=== PATIENT | male | born 1990 | race African-American/Black ===

== ENCOUNTER 2018-08-14 07:56 | Emergency (ER) | payer OTHER ==
[~2018-08-14] VITALS: Ht 180.3 cm; Wt 101.4 kg
[2018-08-14] MEDS ORDERED: ACET-683 PO (08:07)
[2018-08-14] MEDS ORDERED: IBUP200C25 PO (08:07)
[2018-08-14 08:57] LABS: BASO % 0.8 % (0.0-1.0); EOS # 0.1 10^3/uL (0.0-0.50); EOS % 2.5 % (0.0-3.0); HEMATOCRIT 44.9 % (42.0-52.0); LYMPH # 1.7 10^3/uL (1.5-6.5); LYMPH % 34.9 % (24.0-44.0); MEAN CORPUSCULAR HEMOGLOBIN 29.6 pg (27.0-33.0); MEAN CORPUSCULAR HGB CONC 33.4 g/dl (32.0-36.5); MEAN CORPUSCULAR VOLUME 88.7 fl (80.0-96.0); MONO # 0.4 10^3/uL (0.0-0.8); MONO % 7.9 % (0.0-5.0); NEUTROPHILS # 2.6 10^3/uL (1.8-7.7); NEUTROPHILS % 53.7 % (36.0-66.0); PLATELET COUNT, AUTOMATED 185 10^3/uL (150-450); RED BLOOD COUNT 5.06 10^6/uL (4.30-6.10); WHITE BLOOD COUNT 4.8 10^3/uL (4.0-10.0)
[2018-08-14 09:23] LABS: BLOOD UREA NITROGEN 6 MG/DL (7-18); CALCIUM LEVEL 8.7 MG/DL (8.5-10.1); CARBON DIOXIDE LEVEL 26 MEQ/L (21-32); CHLORIDE LEVEL 108 MEQ/L (98-107); CREATININE FOR GFR 1.28 MG/DL (0.70-1.30); GLOMERULAR FILTRATION RATE > 60.0 (>60); GLUCOSE, FASTING 95 MG/DL (70-100); POTASSIUM SERUM 4.3 MEQ/L (3.5-5.1); SODIUM LEVEL 142 MEQ/L (136-145)
--- NOTE | 2018-08-14 09:23 | REP ---
Chest two views HISTORY: Cough Comparison: None The lungs are clear. The heart is normal in size. The pulmonary vasculature is normal in appearance. The bony structure is intact. IMPRESSION: No acute disease. Electronically Signed by Vinicio Dai MD 08/14/2018 09:14 A
[2018-08-14 09:30] VITALS: BP 131/78
--- NOTE | 2018-08-14 17:49 | ECGEPIP ---
Stationary ECG Study [facility] - ED Test Date: 2018-08-14 Pat Name: EVERTON EVANGELISTA Department: Room: - Gender: M Ultrasound Spec: [facility] : 1990 Requested By: Julio Avitia Order Number: [id number] Reading MD: Racheal Vega Measurements Intervals [place] Rate: 70 P: 55 HI: 183 QRS: 15 QRSD: 106 T: 5 QT: 367 QTc: 398 Interpretive Statements SINUS RHYTHM EARLY REPOLARIZATION, CLINICAL CORRELATION Electronically Signed On 08-14-2018 17:49:05 EST by Racheal Vega
== END 2018-08-14 09:52 | disposition home or self-care (01) ==
LOC: EDBD 07:56 → M ED 07:56
DX: J11.1 Influenza due to unidentified influenza virus with other respiratory manifestations (principal); B34.9 Viral infection, unspecified; R55 Syncope and collapse

== ENCOUNTER 2018-10-28 15:38 | Emergency (ER) | payer OTHER ==
[~2018-10-28] VITALS: Ht 182.9 cm; Wt 215.0 kg
[~2018-10-28 15:38] MED LIST: ACET-683 PO; IBUP200C25 PO
--- NOTE | 2018-10-28 16:31 | REP ---
Right ankle four views : There is no fracture or dislocation. Mineralization and joint spaces are normal. There are no calcifications or foreign bodies. Impression: Negative loops right ankle . Electronically Signed by Junaid Denton MD 10/28/2018 04:22 P
[2018-10-28 18:57] VITALS: BP 133/77
[2018-10-28] MEDS ORDERED: KETO10TAB PO (18:59)
[2018-10-28] MEDS ORDERED: KETOROLAC TROMETHAMINE 10 MG TAB PO ONE (19:00)
== END 2018-10-28 19:37 | disposition home or self-care (01) ==
LOC: M ED 15:38
DX: S93.401A Sprain of unspecified ligament of right ankle, initial encounter (principal); X50.3XXA Overexertion from repetitive movements, initial encounter; Y92.138 Other place on military base as the place of occurrence of the external cause; Y99.1 Military activity; M72.2 Plantar fascial fibromatosis

== ENCOUNTER 2019-07-28 03:32 | Emergency (ER) | payer OTHER ==
[~2019-07-28] VITALS: Ht 182.9 cm; Wt 90.9 kg
[~2019-07-28 03:32] MED LIST changes: +KETO10TAB PO
[2019-07-28] MEDS ORDERED: ACETAMINOPHEN 500 MG TAB PO ONE (05:45)
[2019-07-28 06:47] VITALS: BP 116/71
--- NOTE | 2019-07-28 07:28 | REP ---
Clinical: Trauma. Technique: AP, lateral views right tibia / fibula . Findings: The osseous structures and joint spaces are intact and normal. There is no evidence for acute fracture or dislocation. Surrounding soft tissues are unremarkable. No subcutaneous emphysema or radiodense foreign body. Impression: No acute fracture or dislocation. Electronically Signed by Slava Nunez MD 07/28/2019 07:19 A
--- NOTE | 2019-07-28 07:29 | REP ---
Clinical: Trauma. Technique: AP and lateral views of the right knee. Findings: No acute fracture or dislocation. Skeletal structures, joint spaces, and surrounding soft tissues are normal for age. No effusion. Impression: No acute fracture or dislocation. Electronically Signed by Slava Nunez MD 07/28/2019 07:20 A
== END 2019-07-28 06:49 | disposition home or self-care (01) ==
LOC: M ED 03:32
DX: S80.01XA Contusion of right knee, initial encounter (principal); V49.50XA Passenger injured in collision with unspecified motor vehicles in traffic accident, initial encounter

== ENCOUNTER 2020-09-12 20:59 | Emergency (ER) | payer OTHER ==
[~2020-09-12] VITALS: Ht 182.9 cm; Wt 102.9 kg
[2020-09-12 21:00] VITALS: BP 146/83
--- NOTE | 2020-09-12 22:09 | REPVR ---
PROCEDURE INFORMATION: Exam: CT Head Without Contrast Exam date and time: 09/12/2020 9:41 PM Age: 30 years old Clinical indication: Injury or trauma; Fall; Blunt trauma (contusions or hematomas) TECHNIQUE: Imaging protocol: Computed tomography of the head without contrast. Radiation optimization: All CT scans at this facility use at least one of these dose optimization techniques: automated exposure control; mA and/or kV adjustment per patient size (includes targeted exams where dose is matched to clinical indication); or iterative reconstruction. COMPARISON: No relevant prior studies available. FINDINGS: Brain: Normal. No hemorrhage. Unremarkable white matter. No mass effect. Cerebral ventricles: No ventriculomegaly. Bones/joints: Unremarkable. No acute fracture. Paranasal sinuses: Visualized sinuses are unremarkable. No fluid levels. Mastoid air cells: Visualized mastoid air cells are well aerated. Soft tissues: Unremarkable. IMPRESSION: No acute intracranial abnormality. Electronically signed by: Daniel Werner On 09/12/2020 22:09:34 PM
--- NOTE | 2020-09-12 22:11 | REPVR ---
PROCEDURE INFORMATION: Exam: CT Cervical Spine Without Contrast Exam date and time: 09/12/2020 9:41 PM Age: 30 years old Clinical indication: Injury or trauma; Fall; Blunt trauma TECHNIQUE: Imaging protocol: Computed tomography images of the cervical spine without contrast. Radiation optimization: All CT scans at this facility use at least one of these dose optimization techniques: automated exposure control; mA and/or kV adjustment per patient size (includes targeted exams where dose is matched to clinical indication); or iterative reconstruction. COMPARISON: No relevant prior studies available. FINDINGS: Bones/joints: Nonspecific straightening. Vertebral body height and AP alignment is preserved. No acute cervical spine fracture. Discs/Spinal canal/Neural foramina: No definite significant central canal stenosis within limitations of technique. Lungs: Lung apices are normal. Pleural spaces: No visible pneumothorax. Soft tissues: Unremarkable. IMPRESSION: No acute cervical spine fracture. Electronically signed by: Daniel Werner On 09/12/2020 22:11:32 PM
--- OUTSIDE RECORDS SUMMARY | 2020-09-12 22:11 | CCD ---
Author Author [facility] Organization [facility] Address Unknown Phone Unavailable Support Name Relationship Address Phone [facility] Next Of Kin [address] [place] [address] Unavailable Re-disclosure Warning The records that you are about to access may contain information from federally-assisted alcohol or drug abuse programs. If such information is present, then the following federally mandated warning applies: This information has been disclosed to you from records protected by federal confidentiality rules (42 CFR part 2). The federal rules prohibit you from making any further disclosure of this information unless further disclosure is expressly permitted by the written consent of the person to whom it pertains or as otherwise permitted by 42 CFR part 2. A general authorization for the release of medical or other information is NOT sufficient for this purpose. The Federal rules restrict any use of the information to criminally investigate or prosecute any alcohol or drug abuse patient.The records that you are about to access may contain highly sensitive health information, the redisclosure of which is protected by Article 27-F of the [place] Public Health law. If you continue you may have access to information: Regarding HIV / AIDS; Provided by facilities licensed or operated by the [place] [facility] Office of Mental Health; or Provided by the [facility] Office for People With Developmental Disabilities. If such information is present, then the following [facility] mandated warning applies: This information has been disclosed to you from confidential records which are protected by state law. State law prohibits you from making any further disclosure of this information without the specific written consent of the person to whom it pertains, or as otherwise permitted by law. Any unauthorized further disclosure in violation of state law may result in a fine or shelter sentence or both. A general authorization for the release of medical or other information is NOT sufficient authorization for further disc losure. Insurance Providers Payer name Policy type / Coverage type Policy ID Covered republican ID Covered republican's relationship to schilling Policy Schilling Plan Information [facility] [employer] [id number]
== END 2020-09-12 23:05 | disposition home or self-care (01) ==
LOC: M ED 20:59
DX: S06.0X9A Concussion with loss of consciousness of unspecified duration, initial encounter (principal); V00.311A Fall from snowboard, initial encounter; Y92.828 Other wilderness area as the place of occurrence of the external cause; Y93.23 Activity, snow (alpine) (downhill) skiing, snowboarding, sledding, tobogganing and snow tubing; Y99.9 Unspecified external cause status